=== PATIENT | female | born 1980 | race American Indian/Alaskan Native ===

== ENCOUNTER 2019-03-19 23:54 | Emergency (ER) | payer OTHER ==
[2019-03-20 00:13] VITALS: BP 150/95
[2019-03-20 01:18] LABS: Bilirubin,Urine NEG (Negative); Blood,Urine NEG (Negative); Color,Urine Yellow (Yellow); Protein,Urine <15 mg/dL mg/dL (Negative); Urobilinogen,Urine < 2.0 mg/dL (<2.0)
[2019-03-20 01:23] LABS: HCG Qualitative,Urine Negative (Negative)
[2019-03-20] MEDS ORDERED: NORCO 5/325 PO STA (03:38)
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
== END 2019-03-20 04:50 | disposition home or self-care (01) ==
LOC: ED 23:54
DX: M54.89 Other dorsalgia (principal)
CPT/HCPCS: 81001; 81025; 99283